=== PATIENT | male | born 1960 | race Caucasian/White ===

== ENCOUNTER 2018-02-21 09:54 | Day surgery (SDC) | payer BC ==
[2018-02-21] VITALS (9 sets, daily range): BP systolic 103–126; BP diastolic 64–87
[~2018-02-21] VITALS: Ht 177.8 cm; Wt 93.0 kg
[2018-02-21] MEDS ORDERED: LIDOCAINE 2% VISCOUS 15 ML UDC ONE (10:00)
[2018-02-21] MEDS ORDERED: NS IV 1000 ML 1,000 ML ONE (10:00)
[2018-02-21] MEDS ORDERED: NS IV 1000 ML 1,000 ML IV SCH ×2 (10:06→10:23)
--- NOTE | 2018-02-21 10:23 | Cardiology History & Physical ---
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 No cp or syncope or shortness of breath or ankle swelling. Went to [facility]. Diagnosed with PAF with RVR. Treated with oral dilt and apixaban. Last such episode in 2009 Review of Systems-Cardiology Review of Systems Constitutional: malaise, tiredness; No weight loss, No weight gain Eyes: No vision change Ears/Nose/Throat: No ear discharge, No nasal drainage, No recent hearing loss Respiratory: As described under HPI Cardiovascular: chest pain Gastrointestinal: No diarrhea, No nausea, No vomiting Genitourinary: No dysuria, No hematuria Musculoskeletal: no symptoms reported Skin: No rash on exposed areas, No ulcerations on exposed areas Psychiatric/Neurological: No seizure, No focal weakness, No syncope Hematologic: No bleeding abnormalities BRD-Zbyrhd-Nizmez Hx Past Medical History PMH As described under Assessment. Family Medical History Family Medical History: No fam h/o early CAD or SCD Allergies and Home Medications Allergies Coded Allergies: No Known Drug Allergies (Verified Allergy, Unknown, 02/02/10) Patient Home Medication List Home Medication List Reviewed: Yes Physical Exam-Cardiology Physical Exam Vital Signs/I&O 02/21/18 10:15 Pulse 81 Resp 18 B/P (MAP) 119/87 (98) Pulse Ox 100 O2 Delivery Room Air Capillary Refill : Constitutional: AAO x 3, well-developed, well-nourished HEENT: EOMI, hearing is well preserved; No xanthelasmas are seen Neck: No carotid bruit; carotid pulses are 2 + bilaterally, with good upstrokes Respiratory: No accessory muscle use; lungs clear to percussion, lungs clear to auscultation Cardiovascular: irregularly irregular, S1 and S2 Gastrointestinal: No tender; soft; No guarding, No rebound; audible bowel sounds Extremities: No clubbing, No cyanosis, No significant edema Skin: No rash on exposed areas, No ulcerations on exposed areas Data Review Labs Laboratory Tests 02/21/18 10:20: A/P-Cardiology Assessment/Admission Diagnosis PAF ELSA, treated with CPAP H/o mild hyperlipidemia No significant CAD on card cath of January 2010. LVEF and LVEDP were normal Admission Status: Other (Same Day Surgery) Discussion and Recomendations * I have discussed the potential etiologies and treatment options of PAF * He wishes to proceed with elec CV * We discussed the rationale, procedure, risks, potential complications, and alternatives of CELSO and elec CV with him. He provides informed consent MARITA HERNÁNDEZ MD FACP [facility] CCDS February 21, 2018 10:23
[2018-02-21] MEDS ORDERED: proPOfol 200 MG/20 ML (DIPRIVAN) VIAL IV ONE (10:27)
[2018-02-21] MEDS ORDERED: MIDAZOLAM 2 MG/2 ML (VERSED) VIAL ONE (10:27)
[2018-02-21 10:54] LABS: INR 1.1 (0.8-1.4); PROTHROMBIN TIME PATIENT 14.7 SEC (12.2-14.7)
--- NOTE | 2018-02-21 11:21 | Anesthesia-Procedure Note ---
Procedures/Interventions Procedure Start/Stop/Diagnosis Date of Procedure: February 21, 2018 Start Time: 10:45 Referring Physician: Edgar Brief History A-fib Stop Time: 10:55 CELSO/Cardioversion Anesthesia Type: MAC ASA Class: 2 Medications Versed 2 mg, Propofol 150 mg BUCK RESENDEZ CRNA February 21, 2018 11:21
--- NOTE | 2018-02-21 14:29 | ECHOCARDIOGRAPHY REPORT ---
DATE OF SERVICE: 02/21/2018 TRANSESOPHAGEAL ECHOCARDIOGRAPHY CLINICAL DIAGNOSIS: Atrial fibrillation. Transesophageal echocardiography was carried out under conscious sedation delivered by the nurse business process consultant. Multiplane probe was used. Global left ventricular systolic function normal. No regional wall motion abnormality is seen. Aortic, mitral and tricuspid valve leaflets show good leaflet excursion. There is no significant pericardial effusion. Aortic valve is trileaflet. There appears to be mild systolic bowing of the posterior mitral leaflet. There does not appear to be significant mitral valve prolapse. Doppler imaging did not indicate significant valvular regurgitation. There was no distinct evidence of intracardiac shunt. There was no evidence of any intracardiac thrombus. The left atrial appendage was well visualized and was not found to have any thrombus. CONCLUSIONS: 1. Normal global left ventricular systolic function with ejection fraction approximately 60%. 2. Mild systolic bowing of the posterior mitral leaflet without significant prolapse and without mitral regurgitation. 3. No evidence of intracardiac thrombus. Job ID: [id number] DocumentID: [id number] Dictated Date: 02/21/2018 11:00:35 Residential Recycle Driver Date: 02/21/2018 14:28:58 Dictated By: ESSIE GRIFFIN MD, MA, FACP, FACC,
--- NOTE | 2018-02-21 21:06 | OPERATIVE REPORT ---
DATE OF SERVICE: 02/21/2018 PREOPERATIVE DIAGNOSIS: Atrial fibrillation. POSTOPERATIVE DIAGNOSIS: Normal sinus rhythm. PROCEDURE PERFORMED: External electrical cardioversion. DESCRIPTION OF PROCEDURE: Informed consent was obtained for transesophageal echocardiography and external electrical cardioversion. Transesophageal echocardiography did not indicate any intracardiac thrombus. A 120 joule synchronized shock was delivered through external patches, which restored normal sinus rhythm. He tolerated the procedure well. Job ID: [id number] DocumentID: [id number] Dictated Date: 02/21/2018 11:02:44 Service Representative Date: 02/21/2018 21:05:44 Dictated By: ESSIE GRIFFIN MD, MA, FACP, FACC,
--- NOTE | 2018-02-22 10:51 | Cardiac Procedure Note-CS/ASA ---
Pre-Procedure Note Pre-Op Procedure Note H&P Reviewed The H&P was reviewed, patient examined and no changes noted. Date H&P Reviewed: February 21, 2018 Time H&P Reviewed: 10:30 Conscious Sedation Pre-Proced Time Reviewed: 10:30 ASA Class: 2 Airway Mallampati Classification: ([place] appropriate class) I. II. III, IV Lungs Heart ASA score ASA 1: a normal healthy patient ASA 2: a patient with a mild systemic disease (mid diabetes, controlled hypertension, obesity ASA 3: a patient with a severe systemic disease that limits activity (angina , COPD, prior Myocardial infarction) ASA 4: a patient with an incapacitating disease that is a constant threat to life (CHF, renal failure) ASA 5: a moribund patient not expected to survive 24 hrs. (ruptured aneurysm) ASA 6: a declared brain patient whose organs are being harvested. For emergent operations, add the letter E after the classification Grade 2 Sedation Plan: Analgesia, Amnesia, Plan communicated to team members, Discussed options with patient/fam, Discussed risks with patient/fam Note The patient is an appropriate candidate to undergo the planned procedure, sedation, and anesthesia. The patient immediately re-assessed prior to indication. ESSIE GRIFFIN MD FACP FAC CCDS February 22, 2018 10:51
== END 2018-02-21 11:50 | disposition home or self-care (01) ==
LOC: CATH 09:54
PROVIDERS: ATTEND Internal Medicine Cardiovascular Disease
DX: I48.0 Paroxysmal atrial fibrillation (principal); G47.33 Obstructive sleep apnea (adult) (pediatric); E78.5 Hyperlipidemia, unspecified; Z11.2 Encounter for screening for other bacterial diseases
CPT/HCPCS: 36415; 85610; 87081; 92960; 93005; 93312; 93320; 93325

== ENCOUNTER → 2018-04-13 | Outpatient (CLI) | payer BC ==
[~2018-04-13] MED LIST: CATHETER FLUSH 10 ML SYR IV PRN
[2018-04-13 09:05] VITALS: BP 166/80
--- NOTE | 2018-04-13 19:49 | STRESS TEST ---
DATE OF SERVICE: 04/13/2018 RESTING AND POST EXERCISE TECHNETIUM-99M TETROFOSMIN SPECT CT IMAGING CLINICAL DIAGNOSES: Paroxysmal atrial fibrillation, palpitations. Baseline images were carried out after injection of 9.98 mCi technetium-99m Tetrofosmin. This was followed by exercise on a treadmill. Marco protocol was employed. Heart rate and blood pressure responses to exercise were normal. No significant ST segment deviation was seen. There was no significant arrhythmia induced by exercise. Test was stopped on account of fatigue. He attained 12.1 METS of workload and 94% of maximum predicted heart rate. He exercised for a total of 11 minutes and 1 second in the Marco protocol. 30.4 mCi of technetium-99m Tetrofosmin were injected after he had attained more than 85% of maximum predicted heart rate and the exercise was continued for more than another minute. Review of images at rest and following stress does not indicate any significant perfusion defects consistent with significant myocardial ischemia or infarction. Gated images show normal global left ventricular systolic function with normal regional wall motion. Left ventricular ejection fraction is calculated to be 59%. Left ventricular end diastolic volume is 81 mL. TID is absent (0.96). CONCLUSIONS: 1. No evidence of any significant myocardial ischemia or infarction on this study. 2. Normal regional wall motion. 3. Normal global left ventricular systolic function with a calculated ejection fraction of 59%. 4. Normal left ventricular cavity size. Job ID: [id number] DocumentID: [id number] Dictated Date: 04/13/2018 16:28:16 Digital Project Manager Date: 04/13/2018 19:48:49 Dictated By: ESSIE GRIFFIN MD, MA, FACP, FACC,
== END ==
LOC: CARD 07:53
PROVIDERS: ATTEND Nurse Practitioner Family
DX: I48.0 Paroxysmal atrial fibrillation (principal); R00.2 Palpitations
CPT/HCPCS: 78452; 93017

== ENCOUNTER 2020-09-17 20:07 | Outpatient (CLI) | payer BC | END 2020-09-18 06:20 | disposition home or self-care (01) | LOC: SLEEP 20:07 | PROVIDERS: ATTEND Otolaryngology Otolaryngology/Facial Plastic Surgery | DX: G47.33 Obstructive sleep apnea (adult) (pediatric) (principal) | CPT/HCPCS: 95811 ==

== ENCOUNTER → 2022-09-23 | Outpatient (CLI) | payer BC ==
[~2022-09-23] VITALS: Ht 177 cm; Wt 91.0 kg
[~2022-09-23] MED LIST changes: -CATHETER FLUSH 10 ML SYR IV PRN; +LIDOCAINE 1% INJ 30 ML (XYLOCAINE) VIAL ONE; +REGADENOSON 0.4 MG/5 ML SYR (LEXISCAN) IV ONE
[2022-09-23] MEDS: CATHETER FLUSH 10 ML SYR IVP PRN ×2 (08:14→09:43)
[2022-09-23 09:39] VITALS: BP 132/75
--- NOTE | 2022-09-23 17:50 | STRESS TEST ---
DATE OF SERVICE: 09/23/2022 RESTING AND POST REGADENOSON TECHNETIUM-99M TETROFOSMIN SPECT CT IMAGING ORDERING PHYSICIAN: Lizette Levin APRN. PRIMARY PHYSICIAN: Dr. Morales. CLINICAL DIAGNOSIS: Paroxysmal atrial fibrillation. Baseline images were carried out after injection of 10.84 mCi of technetium-99m tetrofosmin. This was followed by 0.4 mg regadenoson and 31.1 mCi of technetium-99m tetrofosmin for stress imaging. The electrocardiogram showed sinus rhythm at baseline. On the initial electrocardiogram, there is V1 and V3 reversal. This was corrected during the study and the electrocardiogram was then normal. The electrocardiogram did not change significantly with the regadenoson infusion. He tolerated the procedure well. Review of the images at rest and following stress does not indicate any significant perfusion defects consistent with myocardial ischemia or infarction. Gated images show normal global left ventricular systolic function with normal regional wall motion. Left ventricular ejection fraction is calculated to be 60%. CONCLUSIONS: 1. No evidence of any significant myocardial ischemia or infarction on this study. 2. Normal regional wall motion. 3. Normal global left ventricular systolic function with a calculated ejection fraction of 60%. Job ID: [id number] DocumentID: [id number] Dictated Date: 09/23/2022 15:27:31 Fruit Thinner Date: 09/23/2022 17:49:00 Dictated By: ESSIE GRIFFIN MD; VENUS; FACP; FACC;
== END ==
LOC: CARD 08:30
PROVIDERS: ATTEND Nurse Practitioner Family
DX: I48.0 Paroxysmal atrial fibrillation (principal)
CPT/HCPCS: 78452; 93017; A9502

== ENCOUNTER → 2022-09-23 | Day surgery (SDC) | payer BC ==
[~2022-09-23] VITALS: Ht 177.8 cm; Wt 99.8 kg
[~2022-09-23] MED LIST changes: +LIDOCAINE 1% INJ 30 ML (XYLOCAINE) VIAL INJ ONE; -LIDOCAINE 1% INJ 30 ML (XYLOCAINE) VIAL ONE; -REGADENOSON 0.4 MG/5 ML SYR (LEXISCAN) IV ONE
[2022-09-23 08:35] VITALS: BP 154/76
--- NOTE | 2022-10-04 22:34 | OPERATIVE REPORT ---
DATE OF SERVICE: 09/23/2022 PREOPERATIVE DIAGNOSES: Palpitations, near syncope. POSTOPERATIVE DIAGNOSES: Palpitations, near syncope. DESCRIPTION OF PROCEDURE: Implantable loop recorder implantation was carried out to evaluate symptoms of palpitations that are infrequent and an episode of near syncope several weeks ago. Informed consent was obtained. He was brought to the heart center. The left prepectoral area was prepared and draped in the usual sterile fashion. A 1% lidocaine was used for local anesthesia. We used the tools provided with the Medtronic LINQ device to make a subcutaneous pocket anterior to the fourth intercostal space into which the device was placed. This is a Medtronic LINQ II device, serial number of which is [id number]. The wound edges were closed using Dermabond and Steri-Strips. He tolerated the procedure well. Job ID: [id number] DocumentID: [id number] Dictated Date: 10/04/2022 12:37:09 Livestock Sales Representative Date: 10/04/2022 22:32:00 Dictated By: ESSIE GRIFFIN MD; VENUS; FACP; FACC;
== END | disposition home or self-care (01) ==
LOC: CATH 07:51
PROVIDERS: ATTEND Internal Medicine Cardiovascular Disease
DX: R55 Syncope and collapse (principal); R00.2 Palpitations
CPT/HCPCS: 33285; C1764